=== PATIENT | male | born 1980 | race African-American/Black ===

== ENCOUNTER 2021-02-17 03:21 | Emergency (ER) | payer OTHER ==
[2021-02-17] MEDS ORDERED: Lactated Ringers 1,000 ML IV ONE (03:23)
[2021-02-17] MEDS ORDERED: Aspirin 81 MG Tab.Chew PO ONE (03:23)
[2021-02-17 03:51] LABS: BLOOD UREA NITROGEN,BUN 16 mg/dL (7.0-18.0); CARBON DIOXIDE,CO2 26.7 mmol/L (21.0-32.0); CHLORIDE,CL 102 mmol/L (98-107); GLUCOSE RANDOM 115 mg/dL (74-106); POTASSIUM,K 4.3 mmol/L (3.5-5.1); SODIUM,NA 139 mmol/L (136-148)
--- NOTE | 2021-02-17 04:08 | CR ---
For Patients: As a result of the Cures Act, medical imaging exams and procedure reports are released immediately into your electronic medical record. You may view this report before your referring provider. If you have questions, please contact your health care provider. INDICATION: Chest pain TECHNIQUE: Chest radiograph 1 view COMPARISON: None FINDINGS: Severe degradation of image quality noted due to body habitus. Mediastinum: The mediastinum is normal in appearance. The cardiac silhouette is near the upper limits of normal in size. Lung: Both lungs are unremarkable in appearance. No sign of pleural effusion seen. No pneumothorax is identified. Bone and Soft tissue: Unremarkable for age. IMPRESSION: 1. No acute cardiopulmonary disease is seen. Dictated by Chuy Aguilar MD @ 02/17/2021 4:06:03 AM Dictated by: Chuy Aguilar MD @ 02/17/2021 04:06:09 (Electronically Signed)
--- NOTE | 2021-02-17 07:24 | PCM.EKG ---
#1 Interpretation EKG Date: 02/17/21 Time: 03:28 Rhythm: NSR Rate (Beats/Min): 73 Leslie: Normal P-Wave: Present QRS: Normal ST-T: Normal (T wave inversion) QT: Normal Comparison: NA - No Prior EKG EKG Interpretation Comments: Sinus Rhythm
--- NOTE | 2021-02-17 07:26 | EDM.PDOC ---
ED HPI GENERAL MEDICAL PROBLEM - General Chief Complaint: Chest Pain Stated Complaint: CHEST PAIN Time Seen by Provider: 02/17/21 03:23 - History of Present Illness INITIAL COMMENTS - FREE TEXT/NARRATIVE: CHIEF COMPLAINT(S): Chest pain HISTORY OF PRESENT ILLNESS: This is a 48-year-old man with a past medical history of hypertension and morbid obesity who presents to the emergency department with a chief complaint of chest pain. The patient states that he was sleeping and he awoke and he realized that he could not breathe. He states that at that time he feels that his left arm was numb and tingling as he is laying on that side. However he also noticed he had some chest pain on the left side of his chest which he described as squeezing. He denies any diaphoresis but states that he did have some nausea without any vomiting. He states that this lasted up to 10 seconds and then resolved on its own. He denies recent travel, recent surgery, prior history of DVT or PE. He did rate his pain as 0 out of 10 currently. This chest squeezing did not radiate anywhere. He does not know what aggravated it and it resolved on its own so he does not know any relieving factors. States that he does not have a history of CAD but his mother does have a history of CHF. No early onset CAD or sudden onset at young age. He denies any lower extremity edema. He states that he does snore. He states that he has never had a sleep study. REVIEW OF SYSTEMS: Constitutional: Denies fever, chills. Eyes: Denies eye pain Ears, Nose, Mouth, & Throat: Denies earache Cardiovascular: Positive for left-sided chest squeezing Respiratory: Positive for shortness of breath gastrointestinal: Positive for nausea. Denies vomiting, diarrhea, hematochezia, melena, hematemesis Genitourinary: Denies hematuria Skin:Denies a rash MSK: Denies joint pain Neurological: Positive for left arm paresthesias. Denies blurred vision, numbness, tingling, weakness. Psychiatric: Denies depression PAST MEDICAL HISTORY: As per history of present illness and as reviewed below otherwise noncontributory. SURGICAL HISTORY: As per history of present illness and as reviewed below otherwise noncontributory. SOCIAL HISTORY: As per history of present illness and as reviewed below otherwise noncontributory. FAMILY HISTORY: As per history of present illness and as reviewed below otherwise noncontributory. EXAMINATION OF ORGAN SYSTEMS/BODY AREAS: Constitutional: Blood pressure was 124/69, heart rate 67, respiratory rate 19 with oxygen saturation of 97% on room air. Temperature 36.8. General: Morbidly obese gentleman who does not appear to be in any acute distress. Psychiatric: Appropriate mood and affect. Eyes: No scleral icterus or conjunctival erythema ENMT: Moist mucous membranes. No pharyngeal erythema Cardiovascular: Regular, rate, and rhythm. No gallops, murmurs, or rubs. Bilateral upper extremity pulses symmetric and intact. No peripheral edema. No JVD. Respiratory: Lungs clear to auscultation bilaterally. No wheezes, rales, or rhonchi. Gastrointestinal: Soft, non-tender, non-distended. Normoactive bowel sounds Genitourinary: No suprapubic tenderness Musculoskeletal: Normal range of motion. Skin: No lesions or abrasions. Neurological: Alert, GCS 15 strength and sensation grossly intact in upper and lower extremities bilaterally. MEDICAL DECISION MAKING AND COURSE IN THE ED WITH INTERPRETATION/REVIEW OF DIAGNOSTIC STUDIES: This is a 40-year-old man with a past medical history of hypertension and morbid obesity who presents to the emergency department with left arm paresthesias likely secondary from him laying on it, and left-sided chest squeezing lasting approximately 10 seconds and shortness of breath who is currently asymptomatic with normal vital signs. This episode does sound like sleep apnea however given his concern we did obtain an EKG which was unremarkable. We will undergo a cardiac work-up. The patient currently denies any pain at all whatsoever therefore no pain medication will be given. Will provide patient with aspirin 324 mg given 1 L of lactated Ringer's bolus. Will obtain a chest x-ray. Laboratory: CBC is unremarkable. CMP reveals hyperglycemia otherwise unremarkable. Troponin is negative. POC glucose was 112. VB.35/48 The radiological images were viewed by myself along with reading the report from the radiologist. Chest x-ray did not reveal any acute cardiopulmonary process The patient's vitals continue to remain stable and on reevaluation he had no recurrence of his symptoms. At this time I did discuss with him I like to obta in a repeat troponin given that his symptoms started prior to arrival. He was amenable to this plan. Laboratory: Troponin is negative. Heart Score History: Slightly or Non-Suspicious (0) ECG: Normal (0) Age: <45 (0) Risk Factors: 1-2 (1) Initial Troponin: </= normal limit (0) Total Score: 1 > Low risk PERC Rule Age (>/=50): No (0) HR (>/=100): No (0) SaO2 on RA <95%: No (0) Unilateral Leg Swelling: No (0) Hemoptysis: No (0) Surgery/Trauma in last month requiring general anesthesia: No (0) Prior PE or DVT: : No (0) Hormone Use: No (0) PERC negative Since patient is PERC negative and pre-test probability <15%, there is no need for more intensive workup, <2% chance of PE Repeat troponin is negative. At this time the patient is low risk for ACS. I did discuss importance of follow-up with his primary care physician. I encouraged the patient to discuss with him about obstructive sleep apnea. He was encouraged to return to the emergency department if he had any worsening sym ptoms. He was amenable to discharge at this time and had no further questions. DISPOSITION: The patient was discharged home in stable condition. The patient will follow up with primary care physician in 3 to 5 days. CONDITION: Good PROCEDURES: None FINAL IMPRESSION(S)/DIAGNOSES: 1. Acute atypical chest pain 2. Acute left arm paresthesias Carrington Edgar M.D. - Related Data Allergies Allergy/AdvReac Type Severity Reaction Status Date / Time No Known Allergies Allergy Verified 02/17/21 03:31 Past Medical History HEENT History: Reports: None Cardiovascular History: Reports: Hypertension Respiratory History: Reports: None Gastrointestinal History: Reports: None Genitourinary History: Reports: None Musculoskeletal History: Reports: None Neurological History: Reports: None Psychiatric History: Reports: None Endocrine/Metabolic History: Reports: None Hematologic History: Reports: None Immunologic History: Reports: None Oncologic (Cancer) History: Reports: None Dermatologic History: Reports: None - Infectious Disease History Infectious Disease History: Reports: Chicken Pox - Past Surgical History Head Surgeries/Procedures: Reports: None Oncologic Surgical History: Reports: None Social & Family History - Family History Cardiac: Reports: Heart Failure - Tobacco Use Tobacco Use Status *Q: Never Tobacco User - Caffeine Use Caffeine Use: Reports: None - Recreational Drug Use Recreational Drug Use: No ED ROS GENERAL - Review of Systems Review Of Systems: See Below ED EXAM, GENERAL - Physical Exam Exam: See Below Course - Vital Signs Last Recorded V/S: Last Vital Signs Temp 36.2 C 02/17/21 07:46 Pulse 62 02/17/21 07:46 Resp 18 02/17/21 05:34 BP 131/81 02/17/21 07:46 Pulse Ox 100 02/17/21 07:46 - Orders/Labs/Meds Labs: Laboratory Tests 02/17/21 02/17/21 02/17/21 Range/Units 03:28 03:28 04:50 WBC 7.36 (4.0-11.0) K/uL RBC 4.75 (4.50-5.90) M/uL Hgb 13.3 (13.0-17.0) g/dL Hct 40.3 (38.0-50.0) % MCV 84.8 (80.0-98.0) fL MCH 28.0 (27.0-32.0) pg MCHC 33.0 (31.0-37.0) g/dL RDW Std Deviation 44.5 (28.0-62.0) fl RDW Coeff of Mar 14 (11.0-15.0) % Plt Count 380 (150-400) K/uL MPV 9.60 (7.40-12.00) fL Neut % (Auto) 44.6 L (48.0-80.0) % Lymph % (Auto) 43.8 H (16.0-40.0) % [place] % (Auto) 7.5 (0.0-15.0) % Eos % (Auto) 3.7 (0.0-7.0) % Baso % (Auto) 0.4 (0.0-1.5) % Neut # (Auto) 3.3 (1.4-5.7) K/uL Lymph # (Auto) 3.2 H (0.6-2.4) K/uL [place] # (Auto) 0.6 (0.0-0.8) K/uL Eos # (Auto) 0.3 (0.0-0.7) K/uL Baso # (Auto) 0.0 (0.0-0.1) K/uL Nucleated RBC % 0.0 /100WBC Nucleated RBCs # 0 K/uL VBG pH 7.35 (7.31-7.41) VBG pCO2 48 (41-51) mmHG VBG pO2 33 mmHG VBG HCO3 27 (23-28) mEq/L VBG Total CO2 24 (24-29) mmol/L VBG Base Excess 0.4 (-2.0-3.0) Sodium 139 (136-148) mmol/L Potassium 4.3 (3.5-5.1) mmol/L Chloride 102 (98-107) mmol/L Carbon Dioxide 26.7 (21.0-32.0) mmol/L BUN 16 (7.0-18.0) mg/dL Creatinine 1.2 (0.8-1.3) mg/dL Est Cr Clr Drug Dosing 97.80 mL/min Estimated GFR (MDRD) > 60.0 ml/min Glucose 115 H (74-106) mg/dL POC Glucose (70-99) mg/dL Calcium 8.9 (8.5-10.1) mg/dL Magnesium 2.2 (1.8-2.4) mg/dL Total Bilirubin 0.3 (0.2-1.0) mg/dL AST 31 (15-37) IU/L ALT 30 (14-63) IU/L Alkaline Phosphatase 62 (46-116) U/L Troponin I < 0.050 (0.000-0.056) ng/mL Total Protein 7.7 (6.4-8.2) g/dL Albumin 3.4 (3.4-5.0) g/dL Globulin 4.3 H (2.6-4.0) g/dL Albumin/Globulin Ratio 0.8 L (0.9-1.6) 02/17/21 02/17/21 Range/Units 06:30 07:24 WBC (4.0-11.0) K/uL RBC (4.50-5.90) M/uL Hgb (13.0-17.0) g/dL Hct (38.0-50.0) % MCV (80.0-98.0) fL MCH (27.0-32.0) pg MCHC (31.0-37.0) g/dL RDW Std Deviation (28.0-62.0) fl RDW Coeff of Mar (11.0-15.0) % Plt Count (150-400) K/uL MPV (7.40-12.00) fL Neut % (Auto) (48.0-80.0) % Lymph % (Auto) (16.0-40.0) % [place] % (Auto) (0.0-15.0) % Eos % (Auto) (0.0-7.0) % Baso % (Auto) (0.0-1.5) % Neut # (Auto) (1.4-5.7) K/uL Lymph # (Auto) (0.6-2.4) K/uL [place] # (Auto) (0.0-0.8) K/uL Eos # (Auto) (0.0-0.7) K/uL Baso # (Auto) (0.0-0.1) K/uL Nucleated RBC % /100WBC Nucleated RBCs # K/uL VBG pH (7.31-7.41) VBG pCO2 (41-51) mmHG VBG pO2 mmHG VBG HCO3 (23-28) mEq/L VBG Total CO2 (24-29) mmol/L VBG Base Excess (-2.0-3.0) Sodium (136-148) mmol/L Potassium (3.5-5.1) mmol/L Chloride (98-107) mmol/L Carbon Dioxide (21.0-32.0) mmol/L BUN (7.0-18.0) mg/dL Creatinine (0.8-1.3) mg/dL Est Cr Clr Drug Dosing mL/min Estimated GFR (MDRD) ml/min Glucose (74-106) mg/dL POC Glucose 112 H (70-99) mg/dL Calcium (8.5-10.1) mg/dL Magnesium (1.8-2.4) mg/dL Total Bilirubin (0.2-1.0) mg/dL AST (15-37) IU/L ALT (14-63) IU/L Alkaline Phosphatase (46-116) U/L Troponin I < 0.050 (0.000-0.056) ng/mL Total Protein (6.4-8.2) g/dL Albumin (3.4-5.0) g/dL Globulin (2.6-4.0) g/dL Albumin/Globulin Ratio (0.9-1.6) Meds: Medications Discontinued Medications Generic Name Dose Route Start Last Admin Trade Name Alejandra PRN Reason Stop Dose Admin Aspirin 324 mg 02/17/21 03:23 02/17/21 03:42 Aspirin 81 Mg Tab.Chew PO 02/17/21 03:24 324 mg ONETIME ONE Administration Lactated Ringer's 1,000 mls @ 999 mls/hr 02/17/21 03:23 02/17/21 03:43 Ringers, Lactated IV 02/17/21 04:23 999 mls/hr .BOLUS ONE Administration Departure - Departure Time of Disposition: 07:25 Disposition: Home, Self-Care 01 Condition: Fair Clinical Impression: Atypical chest pain - Discharge Information Instructions: Nonspecific Chest Pain, Adult, [id number] Referrals: PCP,None [Primary Care Provider] - Forms: ED Department Discharge Additional Instructions: You evaluate today on emergent basis. At this time all of your lab and imaging were normal. At this time I do recommend that you follow-up with your primary care physician. If you have any worsening symptoms such as worsening chest pain, shortness of breath, passing out I would like you to return to the emergency department. [facility] - Primary Care [address] [place] [address] [id number] [address] [id number] The patient is informed of any results of their evaluation and diagnostic workup and all questions are answered. They are given discharge instructions and return precautions. The patient is stable for discharge. The patient states they understand and agree with the plan and that they will return if their symptoms get worse or if they have any new concerns. The following information is given to patients seen in the emergency department who are being discharged to home. This information is to outline your options for follow-up care. We provide all patients seen in our emergency department with a follow-up referral. The need for follow-up, as well as the timing and circumstances, are variable depending upon the specifics of your emergency department visit. If you don't have a primary care physician on staff, we will provide you with a referral. We always advise you to contact your personal physician following an emergency department visit to inform them of the circumstance of the visit and for follow-up with them and/or the need for any referrals to a consulting specialist. The emergency department will also refer you to a specialist when appropriate. This referral assures that you have the opportunity for follow-up care with a specialist. All of these measure are taken in an effort to provide you with optimal care, which includes your follow-up. Under all circumstances we always encourage you to contact your private physician who remains a resource for coordinating your care. When calling for follow-up care, please make the office aware that this follow-up is from your recent emergency room visit. If for any reason you are refused follow-up, please contact the [facility] Emergency Department at and asked to speak to the emergency department charge nurse. Sepsis Event Note (ED) - Evaluation Sepsis Screening Result: No Definite Risk
== END 2021-02-17 07:47 | disposition home or self-care (01) ==
LOC: MW.ED 03:21
DX: R07.89 Other chest pain (principal); R20.2 Paresthesia of skin
CPT/HCPCS: 36415; 71045; 80053; 82803; 82947; 83735; 84484; 85025; 93005; 99285; A9270; J7120